=== PATIENT | female | born 1975 | race Asian ===

== ENCOUNTER 2023-03-08 22:55 | Emergency (ER) | payer OTHER ==
[2023-03-08 23:04] VITALS: BP 116/78; PULSE 59; RESP 16; TEMP 98.1; BMI 21.4
== END 2023-03-09 01:47 | disposition home or self-care (01) ==
LOC: FER 22:55
DX: R22.41 Localized swelling, mass and lump, right lower limb (principal); M79.604 Pain in right leg
CPT/HCPCS: 93971-TC; 99284-25